=== PATIENT | female | born 1965 | race Caucasian/White ===

== ENCOUNTER 2022-06-06 08:25 | Outpatient (CLI) | payer OTHER | END 2022-06-06 08:26 | disposition home or self-care (01) | LOC: CSHMAMMO 08:25 | PROVIDERS: ATTEND Family Medicine | DX: Z12.31 Encounter for screening mammogram for malignant neoplasm of breast (principal); R92.1 Mammographic calcification found on diagnostic imaging of breast | CPT/HCPCS: 77063; 77067 ==